=== PATIENT | female | born 1940 | race Caucasian/White ===

== ENCOUNTER → 2019-12-20 | Outpatient (CLI) | payer MEDICARE, OTHER ==
[~2019-12-20] MED LIST: GADOBUTROL 7.5 MMOL/7.5 ML (GADAVIST) VIAL IV ONE
[2019-12-20 09:03] LABS: CALCIUM 10.3 MG/DL (8.5-10.1); CREATININE SERUM 0.91 MG/DL (0.60-1.30); POTASSIUM 3.9 MMOL/L (3.6-5.0)
--- NOTE | 2019-12-20 15:38 | Diagnostic Imaging Report ---
EXAMINATION: MRI of the left upper extremity with and without contrast from 12/20/2019. TECHNIQUE: Multiplanar, multisequence pre and post contrast-enhanced MRI of the left upper extremity was accomplished. INDICATION: Soft tissue mass, marker at the site of concern in the anterior shoulder. Patient has a history of breast cancer 12 years ago. COMPARISONS: None. FINDINGS: Underlying the marker is an oval predominantly fatty appearing lesion with signal characteristics consistent with fat. This measures 2.5 x 3.4 x 5.9 cm in size. A few medial peripheral septations are noted. Postcontrast images demonstrate minimal linear enhancement along the septations and peripheral capsule. The supraspinatus and infraspinatus tendons demonstrate no full-thickness tears or retraction. There is mild internal hyperintensity in the supraspinatus tendon consistent with a small intrasubstance tear. The subscapularis tendon demonstrates mild abnormal signal intensity along its articular-sided fibers consistent with a partial tear as well. No retraction is appreciated. There is mild medial subluxation of the long head of the biceps tendon is noted, but no dislocation is seen. There is no discontinuity. The intracapsular aspect of the biceps tendon appears to be intact. The labrum is heterogeneous in nature containing areas of high signal anteriorly and superiorly. These findings could be degenerative signal; however, a tear is not excluded on this non-articular contrast MRI. If there is concern for a tear of the labrum, post-arthrogram MRI could better characterize if clinically indicated. There is a moderate joint effusion at the glenohumeral joint space containing multiple internal hypointensities likely loose bodies. Enhancement along the peripheral synovium noted and could be due to focal synovitis given marked enhancement along the posterior aspect of the joint. The acromioclavicular joint demonstrates narrowing and spurring. Minimal fluid in the subdeltoid-subacromial bursa perhaps due to mild bursitis. There are multiple subchondral cysts throughout the glenoid consistent with degenerative disease with hypointensities in the subcoracoid recess of uncertain etiology, possibly large loose bodies. The axilla is unremarkable. Muscle volume demonstrates minimal atrophy of the supraspinatus muscle but for the most part is well preserved. IMPRESSION: 1. Partial tear of the supraspinatus tendon and subscapularis tendon with the infraspinatus tendon intact. 2. Large predominantly fatty appearing lesion at the site of palpable concern. Given the size and the peripheral septations, short-term follow-up at least clinically should be performed, and if this increases in size, resection may be warranted. Otherwise, resection at this time could be considered as a low-grade liposarcoma could have these mild changes within. 3. Synovitis and bursitis suspected with other chronic degenerative changes as above. 4. Other findings as above. Dictated by: Dictated on workstation # [id number]
== END ==
LOC: RAD 08:30
PROVIDERS: ATTEND Nurse Practitioner Family
DX: M79.89 Other specified soft tissue disorders (principal); S46.912A Strain of unspecified muscle, fascia and tendon at shoulder and upper arm level, left arm, initial encounter; M75.92 Shoulder lesion, unspecified, left shoulder; M25.412 Effusion, left shoulder
CPT/HCPCS: 36415; 73223; 80048

== ENCOUNTER → 2020-08-16 | Outpatient (CLI) | payer MEDICARE, OTHER ==
[2020-08-16 16:12] LABS: BASOPHILS % (AUTO) 1 % (0-10); EOSINOPHILS % (AUTO) 4 % (0-10); HEMATOCRIT 36 % (35-52); LYMPHOCYTES % (AUTO) 16 % (12-44); MEAN CORPUSCULAR HEMOGLOBIN 31 PG (25-34); MEAN CORPUSCULAR HGB CONC 34 G/DL (32-36); MEAN CORPUSCULAR VOLUME 92 FL (80-99); MONOCYTES % (AUTO) 13 % (0-12); NEUTROPHILS % (AUTO) 65 % (42-75); PLATELET COUNT 260 10^3/uL (130-400); WHITE BLOOD COUNT 7.7 10^3/uL (4.3-11.0)
[2020-08-16 16:13] LABS: BASOPHILS # (AUTO) 0.1 10^3/uL (0.0-0.1); EOSINOPHILS # (AUTO) 0.3 10^3/uL (0.0-0.3); LYMPHOCYTES # (AUTO) 1.2 X 10^3 (1.0-4.0)
[2020-08-16 16:22] LABS: ALANINE AMINOTRANSFERASE 5 U/L (0-55); ALBUMIN 4.6 GM/DL (3.2-4.5); ALKALINE PHOSPHATASE 52 U/L (40-136); BILIRUBIN,TOTAL 0.3 MG/DL (0.1-1.0); BUN/CREATININE RATIO 24; CALCIUM 10.6 MG/DL (8.5-10.1); CARBON DIOXIDE 30 MMOL/L (21-32); CHLORIDE 102 MMOL/L (98-107); CREATININE SERUM 0.89 MG/DL (0.60-1.30); GFR ESTIMATED > 60; GLUCOSE 98 MG/DL (70-105); SODIUM 140 MMOL/L (135-145); TOTAL PROTEIN 7.1 GM/DL (6.4-8.2)
== END ==
LOC: LAB FS 14:57
PROVIDERS: ATTEND Family Medicine
DX: Z51.81 Encounter for therapeutic drug level monitoring (principal); R53.82 Chronic fatigue, unspecified; Z79.899 Other long term (current) drug therapy
CPT/HCPCS: 36415; 80053; 82607; 84443; 85025

== ENCOUNTER 2021-01-22 20:01 | Emergency (ER) | payer MEDICARE, OTHER ==
[~2021-01-22] VITALS: Ht 152 cm; Wt 48.9 kg
[2021-01-22 20:42] LABS: BASOPHILS # (AUTO) 0.1 10^3/uL (0.0-0.1); BASOPHILS % (AUTO) 1 % (0-10); EOSINOPHILS # (AUTO) 0.2 10^3/uL (0.0-0.3); EOSINOPHILS % (AUTO) 3 % (0-10); HEMATOCRIT 38 % (35-52); HEMOGLOBIN 12.8 g/dL (11.5-16.0); LYMPHOCYTES # (AUTO) 1.8 10^3/uL (1.0-4.0); LYMPHOCYTES % (AUTO) 24 % (12-44); MEAN CORPUSCULAR HEMOGLOBIN 31 pg (25-34); MEAN CORPUSCULAR HGB CONC 33 g/dL (32-36); MEAN CORPUSCULAR VOLUME 93 fL (80-99); MEAN PLATELET VOLUME 10.7 fL (9.0-12.2); MONOCYTES # (AUTO) 1.1 10^3/uL (0.0-1.0); MONOCYTES % (AUTO) 14 % (0-12); NEUTROPHILS # (AUTO) 4.5 10^3/uL (1.8-7.8); NEUTROPHILS % (AUTO) 59 % (42-75); PLATELET COUNT 271 10^3/uL (130-400); WHITE BLOOD COUNT 7.7 10^3/uL (4.3-11.0)
--- NOTE | 2021-01-22 20:43 | ED General ---
General Stated Complaint: SOB,WEAKNESS Source of Information: Patient Exam Limitations: No Limitations History of Present Illness Date Seen by Provider: Jan 22, 2021 Time Seen by Provider: 20:26 Initial Comments Patient to the ER by private conveyance with general symptoms of fatigue for the past 4 months progressively worsening. She says she feels weak and says it is because her Parkinson's is out of control and she shakes a lot and she thinks it makes her feel tired. She has a history of hypertension, hyperlipidemia, Parkinson's. No history of lung or heart disease. No chest pain, shortness of air but she says she gets very fatigued easily with activities. She says she has coughing fits in the morning but no wheezing and no history of asthma or COPD or smoking. She says throughout the day she does not have any problems. No muscle aches or fever. Her symptoms started back in October when she was staying with a friend who was diagnosed with Covid and while she never tested po sitive for Covid she has had problems since then. Her neurologist started her on 2 new medicines recently without benefit for her shaking so he has referred her on to a specialty neurologist for further diagnosis and management of her symptoms. Dr. Magdaleno her primary care doctor did labs on her last week and told her they were normal and ordered some more blood work this morning which she went and got done but has not got the results yet. She does take triamterene and hydrochlorothiazide for her blood pressure as well as benazepril. Allergies and Home Medications Allergies Coded Allergies: No Known Drug Allergies (Unverified , 12/20/19) Patient Home Medication List Home Medication List Reviewed: Yes Review of Systems Review of Systems Constitutional: No chills, No fever EENTM: No ear discharge, No ear pain Respiratory: No cough; short of breath Cardiovascular: No chest pain, No Hx of Intervention, No palpitations Gastrointestinal: No abdominal pain, No constipation, No diarrhea Genitourinary: No dysuria, No pain Musculoskeletal: No back pain, No joint pain, No joint swelling Skin: No change in color, No pruritus, No rash All Other Systems Reviewed Negative Unless Noted: Yes Past Rjwoarx-Ilmkiz-Rnlnsg Hx Patient Social History Alcohol Use: Denies Use Drug of Choice: Denies Smoking Status: Never a Smoker Physical Exam Vital Signs Vital Signs - First Documented 01/22/21 20:23 Temp 35.9 Pulse 82 Resp 18 B/P (MAP) 116/74 (88) Pulse Ox 97 O2 Delivery Room Air Capillary Refill : Height, Weight, BMI Height: '" Weight: lbs. oz. kg; BMI Method: General Appearance: No Apparent Distress, WD/WN, Anxious Eyes: Bilateral Eye Normal Inspection, Bilateral Eye PERRL, Bilateral Eye EOMI HEENT: PERRL/EOMI, Pharynx Normal, Moist Mucous Membranes Neck: Full Range of Motion, Normal Inspection Respiratory: Lungs Clear, Normal Breath Sounds, No Accessory Muscle Use, No Respiratory Distress Cardiovascular: Regular Rate, Rhythm, No Edema, Normal Peripheral Pulses Gastrointestinal: Normal Bowel Sounds, Non Tender, Soft Extremity: Normal Capillary Refill, Normal Inspection, Other (Tremor) Neurologic/Psychiatric: Alert, Oriented x3, Normal Mood/Affect Skin: Normal Color, Warm/Dry Progress/Results/Core Measures Suspected Sepsis SIRS Temperature: Pulse: Respiratory Rate: Laboratory Tests 01/22/21 20:28: White Blood Count 7.7 Blood Pressure / Mean: Laboratory Tests 01/22/21 20:28: Creatinine 1.21, Platelet Count 271, Total Bilirubin 0.4 Results/Orders Lab Results Laboratory Tests Test 01/22/21 20:28 01/22/21 20:57 Range/Units White Blood Count 7.7 4.3-11.0 10^3/uL Red Blood Count 4.10 3.80-5.11 10^6/uL Hemoglobin 12.8 11.5-16.0 g/dL Hematocrit 38 35-52 % Mean Corpuscular Volume 93 80-99 fL Mean Corpuscular Hemoglobin 31 25-34 pg Mean Corpuscular Hemoglobin Concent 33 32-36 g/dL Red Cell Distribution Width 12.1 10.0-14.5 % Platelet Count 271 130-400 10^3/uL Mean Platelet Volume 10.7 9.0-12.2 fL Immature Granulocyte % (Auto) 0 % Neutrophils (%) (Auto) 59 42-75 % Lymphocytes (%) (Auto) 24 12-44 % Monocytes (%) (Auto) 14 H 0-12 % Eosinophils (%) (Auto) 3 0-10 % Basophils (%) (Auto) 1 0-10 % Neutrophils # (Auto) 4.5 1.8-7.8 10^3/uL Lymphocytes # (Auto) 1.8 1.0-4.0 10^3/uL Monocytes # (Auto) 1.1 H 0.0-1.0 10^3/uL Eosinophils # (Auto) 0.2 0.0-0.3 10^3/uL Basophils # (Auto) 0.1 0.0-0.1 10^3/uL Immature Granulocyte # (Auto) 0.0 0.0-0.1 10^3/uL Sodium Level 142 135-145 MMOL/L Potassium Level 3.8 3.6-5.0 MMOL/L Chloride Level 103 98-107 MMOL/L Carbon Dioxide Level 25 21-32 MMOL/L Anion Gap 14 5-14 MMOL/L Blood Urea Nitrogen 34 H 7-18 MG/DL Creatinine 1.21 0.60-1.30 MG/DL Estimat Glomerular Filtration Rate 43 BUN/Creatinine Ratio 28 Glucose Level 102 70-105 MG/DL Calcium Level 10.3 H 8.5-10.1 MG/DL Corrected Calcium 9.9 8.5-10.1 MG/DL Total Bilirubin 0.4 0.1-1.0 MG/DL Aspartate Amino Transf (AST/SGOT) 14 5-34 U/L Alanine Aminotransferase (ALT/SGPT) < 6 0-55 U/L Alkaline Phosphatase 47 40-136 U/L Total Creatine Kinase 38 29-168 U/L Troponin I < 0.028 <0.028 NG/ML C-Reactive Protein High Sensitivity 0.60 H 0.00-0.50 MG/DL B-Type Natriuretic Peptide 24.9 <100.0 PG/ML Total Protein 6.9 6.4-8.2 GM/DL Albumin 4.5 3.2-4.5 GM/DL Urine Color YELLOW Urine Clarity CLEAR Urine pH 6.0 5-9 Urine Specific [place] 1.025 H 1.016-1.022 Urine Protein NEGATIVE NEGATIVE Urine Glucose (UA) NEGATIVE NEGATIVE Urine Ketones NEGATIVE NEGATIVE Urine Nitrite NEGATIVE NEGATIVE Urine Bilirubin NEGATIVE NEGATIVE Urine Urobilinogen 0.2 < = 1.0 MG/DL Urine Leukocyte Esterase TRACE H NEGATIVE Urine RBC (Auto) NEGATIVE NEGATIVE Urine RBC NONE /HPF Urine WBC RARE /HPF Urine Squamous Epithelial Cells RARE /HPF Urine Crystals NONE /LPF Urine Bacteria NEGATIVE /HPF Urine Casts NONE /LPF Urine Mucus NEGATIVE /LPF Urine Culture Indicated NO My Orders Orders - JOSE,EMA J Chest 1 View, Ap/Pa Only (01/22/21 20:36) Cbc With Automated Diff (01/22/21 20:36) Comprehensive Metabolic Panel (01/22/21 20:36) Hs C Reactive Protein (01/22/21 20:36) Creatine Kinase (01/22/21 20:36) Ekg Tracing (01/22/21 20:36) Continuous Ekg Monitoring (01/22/21 20:36) Troponin I (01/22/21 20:36) BNP (01/22/21 20:36) Ua Culture If Indicated (01/22/21 20:36) Ed Iv/Invasive Line Start (01/22/21 20:36) Ns Iv 500 Ml (Sodium Chloride 0.9%) (01/22/21 20:45) Ed Iv/Invasive Line Start (01/22/21 21:07) Ns Iv 500 Ml (Sodium Chloride 0.9%) (01/22/21 21:15) Medications Given in ED Current Medications Medications Dose Ordered Sig/Zeeshan Route Start Time Stop Time Status Last Admin Dose Admin Sodium Chloride 500 ml @ 0 mls/hr Q0M ONCE IV 01/22/21 20:45 01/22/21 20:46 DC 01/22/21 20:54 1,000 MLS/HR Sodium Chloride 500 ml @ 0 mls/hr Q0M ONCE IV 01/22/21 21:15 01/22/21 21:16 DC 01/22/21 21:10 0 MLS/HR Vital Signs/I&O 01/22/21 20:23 Temp 35.9 Pulse 82 Resp 18 B/P (MAP) 116/74 (88) Pulse Ox 97 O2 Delivery Room Air Capillary Refill : Progress Note : Time: 20:41 Progress Note Patient is able to speak in full sentences without becoming winded and has oxygen saturations in the upper 90s on room air. We can get a CPK to look for rhabdomyolysis secondary to her statin. We will check some labs since she is on 2 diuretics and an MANJU inhibitor. We will get a chest x-ray and an EKG as well as a troponin and BNP however I suspect these will be normal. If we cannot find anything emergent to explain her symptoms then I would refer her to follow-up with her primary care doctor for further evaluation. Records indicate her last lab draw was in August 2020 at [facility] for chronic fatigue syndrome through her primary care office. ECG Initial ECG Impression Date: Jan 22, 2021 Initial ECG Impression Time: 20:39 Initial ECG Rate: 75 Initial ECG Rhythm: Normal Sinus Initial ECG Intervals: Normal Initial ECG Impression: Normal, Nonspecific Changes Initial ECG Comparisson: No Previous ECG Available Comment Sinus rhythm without clinically relevant ST changes. Diagnostic Imaging Diagonstic Imaging: Xray Plain Films/CT/US/NM/MRI: chest Comments NAME: TOBI GOMEZ I [facility] REC#: [id number] PT STATUS: REG ER : 1940 PHYSICIAN: EMA GARCIA MD ADMIT DATE: 01/22/21/ER Signed Date of Exam:01/22/21 CHEST 1 VIEW, AP/PA ONLY INDICATION: Fatigue and weakness Single AP view of the chest is obtained. No previous study is available at this time for comparison. Heart size and pulmonary vascularity are within normal limits. There is mild patchy density in the right perihilar region. Streaky densities in the left lung base may represent atelectasis. There is no evidence of pneumothorax or significant pleural fluid. Degenerative findings are seen in the shoulder joints. IMPRESSION: Patchy density in the right perihilar region may represent pneumonitis. Follow-up PA and lateral views of the chest would be useful. Dictated by: Dictated on workstation # [id number] Dict: 01/22/212126 Trans: 01/22/212156 [facility] [id number] Interpreted by: CORRINE VALDEZ MD Electronically signed by: CORRINE VALDEZ MD 01/22/212156 Reviewed: Reviewed by Me Departure Impression Primary Impression: Fatigue Qualified Codes: R53.83 - Other fatigue Additional Impression: Pneumonia Qualified Codes: J18.9 - Pneumonia, unspecified organism Disposition: 01 HOME, SELF-CARE Condition: Stable Departure-Patient Inst. Decision time for Depature: 21:29 Referrals: JULIAN MAGDALENO MD (PCP/Family) Primary Care Physician Patient Instructions: Fatigue ED, Pneumonia, Adult ED Add. Discharge Instructions: We are going to treat you with some antibiotics for the next week and I would like you to follow-up in a week with Dr. Magdaleno to repeat a chest x-ray two-view. Cefdinir 1 capsule twice a day. Azithromycin 1 tablet daily for the next 4 days. You are dehydrated which may contribute to your symptoms or may not. I would suggest you stop taking the triamterene/hydrochlorothiazide until you follow-up with your primary care doctor and discuss this with her. Return to the ER immediately if you are having severe chest pain, worsening shortness of air or other worrisome symptoms Scripts Azithromycin (Azithromycin) 250 Mg Tablet 250 MG PO DAILY, #4 TAB 0 Refills Prov: EMA GARCIA 01/22/21 Cefdinir (Cefdinir) 300 Mg Capsule 300 MG PO BID, #14 CAP 0 Refills Prov: EMA GARCIA 01/22/21 Copy Copies To 1: JULIAN MAGDALENO MD, TITUS J Jan 22, 2021 20:43
[2021-01-22] MEDS ORDERED: NS IV 500 ML 500 ML IV ONE ×2 (20:45→21:15)
[2021-01-22 20:49] LABS: ALBUMIN 4.5 GM/DL (3.2-4.5); CHLORIDE 103 MMOL/L (98-107); POTASSIUM 3.8 MMOL/L (3.6-5.0); SODIUM 142 MMOL/L (135-145)
[2021-01-22 20:50] LABS: CALCIUM 10.3 MG/DL (8.5-10.1)
[2021-01-22 20:51] LABS: GLUCOSE 102 MG/DL (70-105); TOTAL PROTEIN 6.9 GM/DL (6.4-8.2)
[2021-01-22 20:53] LABS: BILIRUBIN,TOTAL 0.4 MG/DL (0.1-1.0); CARBON DIOXIDE 25 MMOL/L (21-32)
[2021-01-22 20:55] LABS: ALKALINE PHOSPHATASE 47 U/L (40-136); CREATININE SERUM 1.21 MG/DL (0.60-1.30); GFR ESTIMATED 43
[2021-01-22 20:56] LABS: BUN/CREATININE RATIO 28
[2021-01-22 20:58] LABS: ALANINE AMINOTRANSFERASE < 6 U/L (0-55); CREATINE KINASE 38 U/L (29-168)
[2021-01-22 21:00] LABS: BILIRUBIN,URINE NEGATIVE (NEGATIVE); CLARITY,URINE CLEAR; COLOR,URINE YELLOW; GLUCOSE, URINE (UA) NEGATIVE (NEGATIVE); KETONES,URINE NEGATIVE (NEGATIVE); LEUKOCYTE ESTERASE ,URINE TRACE (NEGATIVE); NITRITE,URINE NEGATIVE (NEGATIVE); PROTEIN,URINE NEGATIVE (NEGATIVE)
[2021-01-22 21:06] LABS: BACTERIA,URINE NEGATIVE /HPF; SQUAMOUS EPITHELIAL CELL,UR RARE /HPF; WBC,URINE RARE /HPF
--- NOTE | 2021-01-22 21:30 | Diagnostic Imaging Report ---
INDICATION: Fatigue and weakness Single AP view of the chest is obtained. No previous study is available at this time for comparison. Heart size and pulmonary vascularity are within normal limits. There is mild patchy density in the right perihilar region. Streaky densities in the left lung base may represent atelectasis. There is no evidence of pneumothorax or significant pleural fluid. Degenerative findings are seen in the shoulder joints. IMPRESSION: Patchy density in the right perihilar region may represent pneumonitis. Follow-up PA and lateral views of the chest would be useful. Dictated by: Dictated on workstation # [id number]
[2021-01-22] MEDS ORDERED: AZIT250T12 PO (22:13)
[2021-01-22] MEDS ORDERED: CEFD300C3 PO (22:13)
[2021-01-22] MEDS ORDERED: AZITHROMYCIN 250 MG TAB (ZITHROMAX) PO ONE (22:15)
[2021-01-22] MEDS ORDERED: cefTRIAXone FOR IV USE 1,000 MG in WATER (STERILE) FOR INJECTION 10 ML IV ONE (22:15)
[2021-01-22 22:46] VITALS: BP 116/78
== END 2021-01-22 23:00 | disposition home or self-care (01) ==
LOC: EDUNIT# 20:01 → ER 20:03
DX: R53.83 Other fatigue (principal); J18.9 Pneumonia, unspecified organism
CPT/HCPCS: 36415; 71045; 80053; 81000; 82550; 83880; 84484; 85025; 86141; 93005; 96361; 96374

== ENCOUNTER → 2021-02-07 | Outpatient (CLI) | payer MEDICARE, OTHER ==
[~2021-02-07] MED LIST changes: +AZIT250T12 PO; +CEFD300C3 PO; -GADOBUTROL 7.5 MMOL/7.5 ML (GADAVIST) VIAL IV ONE
--- NOTE | 2021-02-07 12:50 | Diagnostic Imaging Report ---
INDICATION: Shortness of breath. TECHNIQUE/COMPARISON: PA and lateral films of the chest were obtained at 11:19 AM and compared with 01/22/2021. FINDINGS: The heart and mediastinal silhouette are normal in appearance. The lungs appear clear. There is no pneumothorax or pleural fluid. The right perihilar density seen on the prior study has resolved. There is underlying levoscoliotic change. IMPRESSION: Negative chest with resolution of the right perihilar density compared with 01/22/2021. Dictated by: Dictated on workstation # [id number]
== END ==
LOC: RAD FS 11:06
PROVIDERS: ATTEND Family Medicine
DX: J42 Unspecified chronic bronchitis (principal)
CPT/HCPCS: 71046

== ENCOUNTER 2021-10-01 12:44 | Emergency (ER) | payer MEDICARE, OTHER ==
[~2021-10-01] VITALS: Ht 152.4 cm; Wt 48.9 kg
--- OUTSIDE RECORDS SUMMARY | 2021-10-01 12:49 | XMS REPORT | Clinical Summary ---
Author Author [facility] Organization [facility] Address Unknown Phone Unavailable Care Team Providers Care Supervisor Dock Name Role Phone Monse Oscar MD Unavailable Unavailable Tiffanie Sales MD Unavailable Frederick Rose MD Unavailable Joyce Freitas MD Unavailable [phone] Shruthi Carreon MD PCP Source Comments Some departments are not documenting in the electronic medical record. If you d o not see the information that you expected, contact Release of Information in [facility] [employer] Information Management department at [phone] for further assistan ce in locating additional records.[facility] Allergies No known active allergies Medications End Date Status Medication Sig Dispensed Refills Start Date Active benazepril (LOTENSIN) 20 Take 20 mg by 0 mg tablet mouth daily. Active aspirin EC 81 mg tablet Take 81 mg by 0 mouth daily. Active DOCOSAHEXANOIC ACID/EPA Take 1,000 mg 0 (FISH OIL PO) by mouth twice daily. Active CALCIUM CARBONATE/VITAMIN Take by 0 D3 (CALCIUM + D PO) mouth. Active MULTIVITAMIN PO Take by 0 mouth. Active loratadine (CLARITIN) 10 Take 10 mg by 0 mg tablet mouth daily. Active lovastatin(+) (MEVACOR) Take 20 mg by 0 20 mg tablet mouth daily. Active VIT C/VIT Take by 0 E/LUTEIN/MIN/OMEGA-3 mouth daily. (OCUVITE PO) Active acetaminophen (TYLENOL) Take 325 mg 0 325 mg tablet by mouth every 4 hours as needed for Pain. Active diclofenac (VOLTAREN) 1 % Apply 4 g 0 topical gel topically to affected area four times daily. Active levalbuterol tartrate(+) Inhale 2 0 (XOPENEX HFA) 45 puffs by mcg/actuation inhaler mouth into the lungs every 4-6 hours as needed for Wheezing or Shortness of Breath. Active fluticasone propionate Apply 2 0 (FLONASE) 50 sprays to mcg/actuation nasal each nostril spray, suspension as directed daily. Shake bottle gently before using. Active polyethylene glycol 3350 Take 17 g by 0 (MIRALAX) 17 g packet mouth daily. Active traZODone (DESYREL) 50 mg Take one 90 tablet 3 tablet tablet by 1 mouth at bedtime as needed for Sleep. Active amantadine (SYMMETREL) Take one 30 capsule 5 100 mg capsule capsule by 1 mouth daily. 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 Cancer Staging: Clinical: Unsigned Pathologic: Stage IA (T1b, N0, cM0) - S igned by Tiffanie Sales MD on 06/07/2015 Encounters Care Team Description Date Type Specialty Gibran Farris MD Medical Question 10/01/2021 Telephone Neurology Gibran Farris MD Medication Refill 09/04/2021 Telephone Neurology Gibran Farris MD 08/17/2021 Orders Only Neurology Gibran Farris MD Medication Question 08/13/2021 Telephone Neurology Kim Parry 07/18/2021 Specialty Pharmacy Pharmacy/Medica tion Management Gibran Farris MD Medication Follow-up 07/18/2021 Telephone Neurology Gibran Farris MD Idiopathic parkinsonism (HCC) (Primary D x); Sleep disturbances; Dyskinesia 07/13/2021 Office Visit Neurology 07/13/2021 Travel from Last 3 Months Surgical History Surgery Date Site/Laterality Comments BREAST LUMPECTOMY 12/11/2006 - right breast 01/10/2007 LYMPH NODE BIOPSY 12/11/2006 - right breast sent[place] node 01/10/2007 MAMMO HISTORICAL REPORT 11/15/13 bilateral- martine ign DIAGNOSTIC HISTORICAL 04/12/2010 - BMD wnl REPORT 05/12/2010 HX HYSTERECTOMY OOPHORECTOMY KNEE ARTHROSCOPY KNEE ARTHROPLASTY Bilateral Medical History Medical History Date Comments Breast cancer (HCC) 2006 right breast Personal history of irradiation, 2006 recei iwona radiation therapy for right breast presenting hazards to health Carcinoma of breast treated with 05/2007 began Arimidex adjuvant hormone therapy (HCC) Hypertension Parkinson's disease (HCC) 2017 Family History Medical History Relation Name Comments Heart Disease Father Coronary Artery Disease Mother Heart Disease Mother Stroke Mother Tremor Mother Parkinson's Other maternal uncle Unknown to Patient Other paternal Cancer-Breast Paternal Aunt Tremor Paternal Grandmother Diabetes Type II Sister Relation Name Status Comments Father Mother Other maternal uncle Other paternal Paternal Aunt Paternal Grandmother Sister Alive Social History Date Tobacco Use Types Packs/Day Years Used Never Smoker Smokeless Tobacco: Never Used Comments Alcohol Use Standard Drinks/Week No 0 (1 standard drink = 0.6 o z pure alcohol) Sex Assigned at Date Recorded Female 06/12/2020 9:41 AM CDT Last Filed Vital Signs Reading Time Taken Comments Vital Sign 127/81 07/13/2021 1:25 PM CDT Blood Pressure 87 07/13/2021 1:25 PM CDT Pulse 36.9 C (98.4 F) 06/11/2021 12:27 PM CDT Temperature 18 06/11/2021 12:27 PM CDT Respiratory Rate 100% 06/11/2021 12:27 PM CDT Oxygen Saturation - - Inhaled Oxygen Concentration 48.5 kg (107 lb) 07/13/2021 1:17 PM CDT Weight 157.5 cm (5' 2") 07/13/2021 1:17 PM CDT Height 19.57 07/13/2021 1:17 PM CDT Body Mass Index Plan of Treatment Health Maintenance Due Date Last Done Comments MEDICARE ANNUAL WELLNESS 1940 VISIT DTAP/TDAP VACCINES (1 - 1960 Tdap) HEPATITIS C SCREENING 1960 PHYSICAL (COMPREHENSIVE) 1960 EXAM SHINGLES RECOMBINANT 1992 VACCINE (1 of 2) PNEUMONIA (PPSV23) 2007 VACCINE (1 of 1 - PPSV23) INFLUENZA VACCINE 05/13/2021 11/09/2009 OSTEOPOROSIS Completed 12/03/2016, SCREENING/MONITORING 11/21/2014 Results Not on filefrom Last 3 Months Insurance Type Payer Benefit Subscriber ID Effective Phone Address Plan / Dates Group Medicare MEDICARE MEDICARE [id number] 2007- [phone] AND Present [address] [place] [address] Medicare CIGNA CIGNA [id number] 2011- [phone] MEDICARE Present [address] [id number] 1 Advance Directives Patient Section Laborer Explanation Type Date Recorded Advance 12/01/2013 10:08 AM Directive/DPOA Advance Directives 06/02/2013 10:46 AM and Living Will Care Teams Start Date End Date Supervisor Dock Relationship Specialty 10/27/19 Shruthi Carreon MD PCP - General [address] [address] 11/26/13 Monse Oscar MD Hematology & Forwarding Address Oncology Unknown 12/01/13 Tiffanie Sales MD Hematology, [address] [place] [address] Medicine 11/28/14 Frederick Rose MD Radiation [address] [place] [address] 05/06/16 Joyce Freitas MD Surgery [address] [place] [address]
--- OUTSIDE RECORDS SUMMARY | 2021-10-01 12:49 | XMS REPORT | Clinical Summary ---
Author Author [facility] Organization [facility] Address Unknown Phone Unavailable Care Team Providers Care Installation And Repair Technician Name Role Phone PCP Unavailable Allergies Not on File Medications Not on file Active Problems Not on file Social History Date Tobacco Use Types Packs/Day Years Used Never Assessed Sex Assigned at Date Recorded Not on file Last Filed Vital Signs Not on file Plan of Treatment Not on file Results Not on filefrom Last 3 Months
--- OUTSIDE RECORDS SUMMARY | 2021-10-01 12:51 | XMS REPORT | Encounter Summary ---
Author Author [facility] Organization [facility] Address Unknown Phone Unavailable Care Team Providers Care Lead Front End Developer Name Role Phone Monse Oscar MD Unavailable Unavailable Tiffanie Sales MD Unavailable Frederick Rose MD Unavailable Joyce Freitas MD Unavailable [phone] Shruthi Carreon MD PCP Encounter Details Care Team Description Date Type Department Gibran Farris MD [address] [place] [address] 08/17/2021 Orders Only Neurology: [facility] [address] [facility] [place] [address] Social History Date Tobacco Use Types Packs/Day Years Used Never Smoker Smokeless Tobacco: Never Used Comments Alcohol Use Standard Drinks/Week No 0 (1 standard drink = 0.6 o z pure alcohol) Sex Assigned at Date Recorded Female 06/12/2020 9:41 AM CDT documented as of this encounter Functional Status Date of Assessment Functional Status Response 12/12/2020 Does the patient have a hearing impairment: No 12/12/2020 Does the patient have a visual impairment: Yes 12/12/2020 Does the patient have impaired ambulation: No 12/12/2020 Does the patient have an activity of daily living No (ADL) impairment: 12/12/2020 Does the patient have an instrumental activity of No daily living (IADL) impairment: Date of Assessment Cognitive Status Response 12/12/2020 Does the patient have a cognitive impairment: No documented as of this encounter Ordered Prescriptions Start Date End Date Prescription Sig Dispensed Refills 08/17/2021 carbidopa/levodopa ER Take by mouth 300 capsule 3 (RYTARY) 48.75/195 mg as directed: capsule 3 caps am -2 caps noon -3 caps evening- 2 caps nightime documented in this encounter Plan of Treatment Not on filedocumented as of this encounter Visit Diagnoses Not on filedocumented in this encounter Discontinued Medications Start Date End Date Medication Sig Discontinue Reason 07/13/2021 08/17/2021 carbidopa/levodopa ER Take two Reorder (RYTARY) 48.75/195 mg capsules by capsule mouth four times daily. documented as of this encounter Additional Health Concerns Noted Time Assessment 07/13/2021 1:23 PM CDT A fall risk assessment has been complet ed for the patient 07/13/2021 1:23 PM CDT PHQ-2 Depression Total Score: 0 documented as of this encounter Care Teams Start Date End Date Lead Front End Developer Relationship Specialty 10/27/19 Shruthi Carreon MD PCP - [address] [phone] 11/26/13 Monse Oscar MD Hematology & Forwarding Address Oncology Unknown 12/01/13 Tiffanie Sales MD Hematology, [address] [place] [address] Medicine 11/28/14 Frederick Rose MD Radiation [address] [place] [address] 05/06/16 Joyce Freitas MD Surgery [address] [place] [id number] documented as of this encounter
--- OUTSIDE RECORDS SUMMARY | 2021-10-01 12:51 | XMS REPORT | Encounter Summary ---
Author Author [facility] Organization [facility] Address Unknown Phone Unavailable Care Team Providers Care Labeling Strategist Name Role Phone Monse Oscar MD Unavailable Unavailable Tiffanie Sales MD Unavailable Frederick Rose MD Unavailable Joyce Freitas MD Unavailable [phone] Shruthi Carreon MD PCP Reason for Visit * Reason Onset Date Comments Medication Refill 09/04/2021 Encounter Details Care Team Description Date Type Department Gibran Farris MD [address] [place] [address] Medication Refill 09/04/2021 Telephone Neurology: [facility] [address] [place] [address] Social History Date Tobacco Use [...] impairment: No documented as of this encounter Miscellaneous Notes * Telephone Encounter - Cristiana Oneill RN - 09/04/2021 8:36 AM DEVELOPMENT REPRESENTATIVE Patient daughter called and stated that she was needing a new script called in f or Rytary with the increase. Explained a new script was sent on 08/17 with increa se instructions. She states [facility] stated she would not have enough quantity. Transferred her to clinical pharmacist for clarification. LOPMENT REPRESENTATIVE documented in this encounter Plan of Treatment Not on filedocumented as of this encounter Visit Diagnoses Not on filedocumented in this encounter Additional Health Concerns Noted Time Assessment 07/13/2021 1:23 PM CDT A fall risk assessment has been complet ed for the patient 07/13/2021 1:23 PM CDT PHQ-2 Depression Total Score: 0 documented as of this encounter Care Teams Start Date End Date Labeling Strategist Relationship Specialty 10/27/19 Shruthi Carreon MD PCP - [address] [phone] 11/26/13 Monse Oscar MD Hematology & Forwarding Address Oncology Unknown 12/01/13 Tiffanie Sales MD Hematology, [address] [place] [address] Medicine 11/28/14 Frederick Rose MD Radiation [address] [place] [address] 05/06/16 Joyce Freitas MD Surgery [address] [place] [address] documented as of this encounter
--- OUTSIDE RECORDS SUMMARY | 2021-10-01 12:51 | XMS REPORT | Encounter Summary ---
Author Author [facility] Organization [facility] Address Unknown Phone Unavailable Care Team Providers Care Clinical Operations Consultant Name Role Phone Monse Oscar MD Unavailable Unavailable Tiffanie Sales MD Unavailable Frederick Rose MD Unavailable Joyce Freitas MD Unavailable [phone] Shruthi Carreon MD PCP Reason for Visit * Reason Onset Date Comments Medical Question 10/01/2021 Encounter Details Care Team Description Date Type Department Gibran Farris MD [address] [place] [address] Medical Question 10/01/2021 Telephone Neurology: [facility] [address] [place] [place] [address] Social History Date Tobacco Use [...] Telephone Encounter - Cristiana Oneill RN - 10/01/2021 8:45 AM WASTE OIL PUMPER Patient daughter called and stated that her mother is still having "terrible epi sodes". She states that her mother can feel them coming on and it starts with he r getting tearful and then she begins to "cry and moan" and her body tenses and gets so tight that you can see her neck veins. Daughter states that these episod es can last several days and normally happen at least once a week. She states pravin garcía is in pain after due to body tensing up. Patient taking Rytary 3-2-3-2 and amantadine 100 mg AM. She says at this point the patient is ready to start with DBS eval but wants to know what to do in meantime or what they need to do first to begin eval. E OIL PUMPER documented in this encounter Plan of Treatment Not on filedocumented as of this encounter Visit Diagnoses Not on filedocumented in this encounter Additional Health Concerns Noted Time Assessment 07/13/2021 1:23 PM CDT A fall risk assessment has been complet ed for the patient 07/13/2021 1:23 PM CDT PHQ-2 Depression Total Score: 0 documented as of this encounter Care Teams Start Date End Date Clinical Operations Consultant Relationship Specialty 10/27/19 Shruthi Carreon MD PCP - [address] [phone] 11/26/13 Monse Oscar MD Hematology & Forwarding Address Oncology Unknown 12/01/13 Tiffanie Sales MD Hematology, [address] [place] [address] Medicine 11/28/14 Frederick Rose MD Radiation [address] [place] [address] 05/06/16 Joyce Freitas MD Surgery [address] [place] [address] documented as of this encounter
--- OUTSIDE RECORDS SUMMARY | 2021-10-01 12:51 | XMS REPORT | Encounter Summary ---
Author Author [facility] Organization [facility] Address Unknown Phone Unavailable Care Team Providers Care C Architect Name Role Phone Monse Oscar MD Unavailable Unavailable Tiffanie Sales MD Unavailable Frederick Rose MD Unavailable Joyce Freitas MD Unavailable [phone] Shruthi Carreon MD PCP Reason for Visit * Reason Onset Date Comments Medication Question 08/13/2021 Encounter Details Care Team Description Date Type Department Gibran Farris MD [address] [place] [address] Medication Question 08/13/2021 Telephone Neurology: [facility] [address] [place] [address] Social History Date Tobacco Use [...] End Date Prescription Sig Dispensed Refills 08/17/2021 amantadine (SYMMETREL) Take one 30 capsule 5 100 mg capsule capsule by mouth daily. documented in this encounter Miscellaneous Notes * Telephone Encounter - Cristiana Oneill RN - 08/17/2021 1:48 PM CDT Called patient daughter back and relayed that Dr. Farris is okay to restart mirna tadine. Confirmed that patient has increased Rytary. Will call in script for ama ntadine and new script for rytary. * Telephone Encounter - Cristiana Oneill RN - 08/16/2021 1:26 PM CDT Patient daughter called and stated that they increased Rytary as recommended by Dr. Farris and that she received a call from her mother stating that her body is all locked up and that she has been crying everyday for the last week. Patients anxiety as increased and daughter doesn't know if patient is currently having o ff-time or dyskinesia but just knows her body and torso are all stiff and tense. Wants to know if amantadine should be restarted as she believes anxiety or epis odes of crying may have been decreased at that time. * Telephone Encounter - Dorina Cabello LPN - 08/15/2021 9:[address] Farris, Increase Rytary to 3-2-3- 2 for 1 week and see if that helps her Radha notified and to call back in our office in one week * Telephone Encounter - Dorina Cabello LPN - 08/13/2021 3:52 PM CDT Per Radha (daughter), pt has a lot more bad day since switched to Rytary. Pt dillan es Rytary 48.75/195mg - 2 caps QID. No longer takes Sinemet CR and Entacapone. L cee further describe pt is weak, not able to move, fatigue, and tense up of her body. Pt is considering DBS if nothing works. Routing to Dr. Farris for advise documented in this encounter Plan of Treatment Not on filedocumented as of this encounter Visit Diagnoses Not on filedocumented in this encounter Discontinued Medications Start Date End Date Medication Sig Discontinue Reason 06/11/2021 08/13/2021 carbidopa/levodopa CR Take 3 tabs (SINEMET CR) 25/100 mg 4 times tabletIndications: daily (0800, idiopathic parkinsonism 1300, 1800 and 2300 hrs) Indications: Parkinson's disease 06/11/2021 08/13/2021 entacapone (COMTAN) 200 Take 1 tab mg tabletIndications: TID (0800, idiopathic parkinsonism 1300 and 1800) Indications: Parkinson's disease documented as of this encounter Additional Health Concerns Noted Time Assessment 07/13/2021 1:23 PM CDT A fall risk assessment has been complet ed for the patient 07/13/2021 1:23 PM CDT PHQ-2 Depression Total Score: 0 documented as of this encounter Care Teams Start Date End Date C Architect Relationship Specialty 10/27/19 Shruthi Carreon MD PCP - [address] [phone] 11/26/13 Monse Oscar MD Hematology & Forwarding Address Oncology Unknown 12/01/13 Tiffanie Sales MD Hematology, [address] [place] [address] Medicine 11/28/14 Frederick Rose MD Radiation [address] [place] [address] 05/06/16 Joyce Freitas MD Surgery [address] [place] [address] documented as of this encounter
[2021-10-01] MEDS ORDERED: ALPRAZolam 0.5 MG (XANAX) TAB PO STA (13:06)
--- NOTE | 2021-10-01 13:10 | ED Psychosocial ---
General Stated Complaint: ANXIETY Source: patient, family Exam Limitations: no limitations History of Present Illness Date Seen by Provider: Oct 01, 2021 Time Seen by Provider: 12:46 Initial Comments 81-year-old female with past medical history of Parkinson's disease followed by a neurologist up at coming in due to feelings of anxiety and restlessness w ith her body. Started this way when they started increasing her carbidopa/levodopa. They changed medications recently and she was feeling little bit better. They upped the dose about a week ago and she started feeling restless again. At times feels like it is difficult to take a deep breath. Denying any current chest pain, abdominal pain, nausea, vomiting, focal weakness or numbness, fever, or any other concerns. Allergies and Home Medications Allergies Coded Allergies: No Known Drug Allergies (Unverified , 12/20/19) Patient Home Medication List Home Medication List Reviewed: Yes Azithromycin (Azithromycin) 250 Mg Tablet, 250 MG PO DAILY Prescribed by: EMA GARCIA on 01/22/212212 Cefdinir (Cefdinir) 300 Mg Capsule, 300 MG PO BID Prescribed by: EMA GARCIA on 01/22/212212 Review of Systems Constitutional: No chills, No fever EENTM: No blurred vision Respiratory: No cough; short of breath Cardiovascular: No chest pain Gastrointestinal: No abdominal pain Genitourinary: no symptoms reported Musculoskeletal: no symptoms reported Skin: no symptoms reported Psychiatric/Neurological: Anxiety All Other Systems Reviewed Negative Unless Noted: Yes Past Oqbbetb-Lbwfzm-Cvzpuj Hx Patient Social History Tobacco Use?: No Seasonal Allergies Seasonal Allergies: No Past Medical History Surgeries: Yes (cataracts, eye) Breast, Hysterectomy, Lumpectomy, Orthopedic Respiratory: No Cardiac: Yes Chronic Edema/Swelling, High Cholesterol, Hypertension Neurological: Yes Parkinson's Disease Genitourinary: No Gastrointestinal: No Musculoskeletal: No Endocrine: No HEENT: Yes Cataract Cancer: No Psychosocial: No Integumentary: No Physical Exam Vital Signs - First Documented 10/01/21 12:54 Temp 36.1 Pulse 99 Resp 21 B/P (MAP) 129/59 (82) Pulse Ox 99 O2 Delivery Room Air Capillary Refill : Height, Weight, BMI Height: '" Weight: lbs. oz. kg; 21.00 BMI Method: General Appearance: WD/WN, no apparent distress HEENT: PERRL/EOMI, normal ENT inspection, pharynx normal Neck: non-tender, full range of motion, supple, normal inspection Respiratory: chest non-tender, lungs clear, normal breath sounds, no respiratory distress, no accessory muscle use Cardiovascular: regular rate, rhythm, no edema, no murmur Gastrointestinal: normal bowel sounds, non tender, soft; No distended, No guarding, No rebound Extremities: normal range of motion, non-tender, normal inspection, no pedal edema, no calf tenderness, normal capillary refill Neurologic/Psychiatric: rn cvicu II-XII nml as tested, no motor/sensory deficits, alert, normal mood/affect, oriented x 3 Appearance/Memory: appropriate appearance Behavior/Eye Contact: cooperative Skin: normal color, warm/dry Lymphatic: no adenopathy Progress/Results/Core Measures Results/Orders Lab Results Laboratory Tests Test 10/01/21 13:15 Range/Units White Blood Count 8.6 4.3-11.0 10^3/uL Red Blood Count 3.84 3.80-5.11 10^6/uL Hemoglobin 12.2 11.5-16.0 g/dL Hematocrit 36 35-52 % Mean Corpuscular Volume 93 80-99 fL Mean Corpuscular Hemoglobin 32 25-34 pg Mean Corpuscular Hemoglobin Concent 34 32-36 g/dL Red Cell Distribution Width 12.3 10.0-14.5 % Platelet Count 259 130-400 10^3/uL Mean Platelet Volume 10.1 9.0-12.2 fL Immature Granulocyte % (Auto) % Neutrophils (%) (Auto) 72 42-75 % Lymphocytes (%) (Auto) 15 12-44 % Monocytes (%) (Auto) 10 0-12 % Eosinophils (%) (Auto) 3 0-10 % Basophils (%) (Auto) 1 0-10 % Neutrophils # (Auto) 6.2 1.8-7.8 X 10^3 Lymphocytes # (Auto) 1.3 1.0-4.0 X 10^3 Monocytes # (Auto) 0.9 0.0-1.0 X 10^3 Eosinophils # (Auto) 0.2 0.0-0.3 10^3/uL Basophils # (Auto) 0.1 0.0-0.1 10^3/uL Sodium Level 140 135-145 MMOL/L Potassium Level 3.4 L 3.6-5.0 MMOL/L Chloride Level 102 98-107 MMOL/L Carbon Dioxide Level 25 21-32 MMOL/L Anion Gap 13 5-14 MMOL/L Blood Urea Nitrogen 16 7-18 MG/DL Creatinine 0.52 L 0.60-1.30 MG/DL Estimat Glomerular Filtration Rate 114 BUN/Creatinine Ratio 31 Glucose Level 138 H 70-105 MG/DL Calcium Level 9.6 8.5-10.1 MG/DL Corrected Calcium 9.4 8.5-10.1 MG/DL Total Bilirubin 0.4 0.1-1.0 MG/DL Aspartate Amino Transf (AST/SGOT) 16 5-34 U/L Alanine Aminotransferase (ALT/SGPT) 5 0-55 U/L Alkaline Phosphatase 71 40-136 U/L Troponin I < 0.30 <0.30 NG/ML Pro-B-Type Natriuretic Peptide 233.8 H <75.0 PG/ML Total Protein 6.8 6.4-8.2 GM/DL Albumin 4.2 3.2-4.5 GM/DL My Orders Orders - MATT FAJARDO MD Cbc With Automated Diff (10/01/21 13:06) Comprehensive Metabolic Panel (10/01/21 13:06) Probnp Fs (10/01/21 13:06) Troponin I Fs (10/01/21 13:06) Chest 1 View Ap/Pa Only (10/01/21 13:06) Ed Iv/Invasive Line Start (10/01/21 13:06) Ekg Tracing (10/01/21 13:06) Alprazolam Tablet (Xanax Tablet) (10/01/21 13:06) Vital Signs/I&O 10/01/21 12:54 Temp 36.1 Pulse 99 Resp 21 B/P (MAP) 129/59 (82) Pulse Ox 99 O2 Delivery Room Air Progress Progress Note : Progress Note 81-year-old female with above history coming in with restlessness and anxiety in the setting of recently increasing her Parkinson medications. ABCs were intact and vitals were stable on presentation. She does have an appointment with her neurologist at on Friday, but needs something to help get her through to that point. She did take a Xanax which she has a prescription for yesterday and this did help. She is having some chest tightness as well which has been pretty constant for a week. Less likely ACS given the time.. EKG without any acute ischemic changes. We will get a troponin to further with stratify her. Chest x-ray also ordered and interpreted by me showing no acute abnormalities. Given Xanax here, I discussed that I do not like to give this medication typically, especially given she is 81 years old, but given that has worked for her recently I think a short course until Friday while she is being watched closely is reasonable. She also already has a prescription for it. I believe she is stable for discharge with outpatient follow-up. She did improve after the Xanax. She was sent home with strict return precautions. Initial ECG Impression Date: Oct 01, 2021 Initial ECG Impression Time: 13:03 Initial ECG Rate: 86 Initial ECG Rhythm: Normal Sinus Comment Narrow QRS, borderline left axis deviation, no significant ST changes, T wave flattening in the inferior leads which is nonspecific Diagnostic Imaging Diagonstic Imaging: Xray Plain Films/CT/US/NM/MRI: chest Comments [facility]. [place], [place] NAME: TOBI GOMEZ I [facility] REC#: [id number] PT STATUS: REG ER : 1940 PHYSICIAN: MATT FAJARDO MD ADMIT DATE: 10/01/21/ER FS Draft Date of Exam:10/01/21 CHEST 1 VIEW AP/PA ONLY INDICATION: Chest tightness. COMPARISON: 02/07/2021. FINDINGS: Single frontal view of the chest demonstrates normal heart size and pulmonary vascularity. The lungs are well aerated and clear. No large pleural effusion or pneumothorax is seen. The visualized osseous structures show no acute abnormalities. IMPRESSION: 1. No acute cardiopulmonary process. Dictated on workstation # [id number] Dict: 10/01/21 1327 Trans: 10/01/21 1328 [id number] Interpreted by: SHERYL MELO MD Electronically signed by: Departure Impression Primary Impression: Anxiety Additional Impression: Parkinson disease Disposition: 01 HOME, SELF-CARE Condition: Stable Departure-Patient Inst. Decision time for Depature: 13:59 Referrals: JULIAN MAGDALENO MD (PCP/Family) Primary Care Physician Patient Instructions: Anxiety, Adult ED, Parkinson Disease (DC) Add. Discharge Instructions: Please follow-up with your neurologist at as you stated. Please take all the medications as prescribed until now. It is okay to take the Xanax to help with this, but just be very careful that she has not overly sedated, and she is at an increased risk of falls already since she has Parkinson's disease. MATT FAJARDO MD Oct 01, 2021 13:10
--- NOTE | 2021-10-01 13:28 | Diagnostic Imaging Report ---
INDICATION: Chest tightness. COMPARISON: 02/07/2021. FINDINGS: Single frontal view of the chest demonstrates normal heart size and pulmonary vascularity. The lungs are well aerated and clear. No large pleural effusion or pneumothorax is seen. The visualized osseous structures show no acute abnormalities. IMPRESSION: 1. No acute cardiopulmonary process. Dictated by: Dictated on workstation # [id number]
[2021-10-01 13:33] LABS: BASOPHILS % (AUTO) 1 % (0-10); EOSINOPHILS % (AUTO) 3 % (0-10); HEMATOCRIT 36 % (35-52); HEMOGLOBIN 12.2 g/dL (11.5-16.0); LYMPHOCYTES % (AUTO) 15 % (12-44); MEAN CORPUSCULAR HEMOGLOBIN 32 pg (25-34); MEAN CORPUSCULAR HGB CONC 34 g/dL (32-36); MEAN CORPUSCULAR VOLUME 93 fL (80-99); MEAN PLATELET VOLUME 10.1 fL (9.0-12.2); MONOCYTES % (AUTO) 10 % (0-12); NEUTROPHILS % (AUTO) 72 % (42-75); PLATELET COUNT 259 10^3/uL (130-400); WHITE BLOOD COUNT 8.6 10^3/uL (4.3-11.0)
[2021-10-01 13:34] LABS: BASOPHILS # (AUTO) 0.1 10^3/uL (0.0-0.1); EOSINOPHILS # (AUTO) 0.2 10^3/uL (0.0-0.3); LYMPHOCYTES # (AUTO) 1.3 X 10^3 (1.0-4.0); MONOCYTES # (AUTO) 0.9 X 10^3 (0.0-1.0); NEUTROPHILS # (AUTO) 6.2 X 10^3 (1.8-7.8)
[2021-10-01 13:51] LABS: CHLORIDE 102 MMOL/L (98-107); POTASSIUM 3.4 MMOL/L (3.6-5.0); SODIUM 140 MMOL/L (135-145)
[2021-10-01 13:52] LABS: ALANINE AMINOTRANSFERASE 5 U/L (0-55); ALBUMIN 4.2 GM/DL (3.2-4.5); ALKALINE PHOSPHATASE 71 U/L (40-136); BILIRUBIN,TOTAL 0.4 MG/DL (0.1-1.0); BUN/CREATININE RATIO 31; CALCIUM 9.6 MG/DL (8.5-10.1); CARBON DIOXIDE 25 MMOL/L (21-32); CREATININE SERUM 0.52 MG/DL (0.60-1.30); GFR ESTIMATED 114; GLUCOSE 138 MG/DL (70-105); TOTAL PROTEIN 6.8 GM/DL (6.4-8.2)
[2021-10-01 14:07] VITALS: BP 107/72
== END 2021-10-01 14:15 | disposition home or self-care (01) ==
LOC: EDUNIT# 12:44 → ER FS 12:45
DX: F41.9 Anxiety disorder, unspecified (principal); G20 Parkinson's disease; I10 Essential (primary) hypertension; Z79.899 Other long term (current) drug therapy
CPT/HCPCS: 36415; 71045; 80053; 83880; 84484; 85025; 93005